=== PATIENT | female | born 1930 | race Caucasian/White ===

== ENCOUNTER → 2016-05-07 11:24 | Outpatient (CLI) | payer MEDICARE, BC ==
[~2016-05-07 11:24] MED LIST: ACETAMINOPHEN325 MG PO; ALEVE220 MG; ASPIRIN 81 MG E81 MG; CALCIUM 600 +1 EAC3 PO; DYRENIUM50 MG; EVISTA60 MG PO; MULTIPLE VITAMI1 TA1 PO; NORCO 10/325 TA1 TA1 PO; PRILOSEC20 MG; TOPROL XL50 MG; ZANAFLEX4 MG PO
== END | disposition home or self-care (01) ==
LOC: D.MRI 11:24
DX: M54.16 Radiculopathy, lumbar region (principal)

== ENCOUNTER 2016-07-02 12:45 | Outpatient (CLI) | payer MEDICARE, BC ==
[~2016-07-02] VITALS: Ht 154.9 cm; Wt 61.4 kg
[2016-07-02 13:53] VITALS: Ht 154.9 cm; Wt 61.4 kg
== END 2016-07-02 13:45 | disposition home or self-care (01) ==
LOC: D.OPS 12:45
DX: M81.0 Age-related osteoporosis without current pathological fracture (principal)

== ENCOUNTER 2017-01-05 10:16 | Outpatient (CLI) | payer MEDICARE, BC ==
[~2017-01-05] VITALS: Ht 154.9 cm; Wt 56.8 kg
[2017-01-05 11:49] VITALS: Ht 154.9 cm; Wt 56.8 kg
== END 2017-01-05 11:30 | disposition home or self-care (01) ==
LOC: D.OPS 10:16
DX: M81.0 Age-related osteoporosis without current pathological fracture (principal)

== ENCOUNTER → 2017-12-15 10:21 | Outpatient (CLI) | payer MEDICARE, BC ==
[~2017-12-15] VITALS: Ht 154.9 cm; Wt 50.0 kg
[2017-12-15 10:55] VITALS: Ht 154.9 cm; Wt 50.0 kg
== END | disposition home or self-care (01) ==
LOC: D.OPS 10-21 13:00
DX: M81.0 Age-related osteoporosis without current pathological fracture (principal); Z01.812 Encounter for preprocedural laboratory examination

== ENCOUNTER 2018-08-25 13:06 | Outpatient (CLI) | payer MEDICARE, BC ==
[~2018-08-25] VITALS: Ht 154.9 cm; Wt 48.2 kg
[2018-08-25 14:22] VITALS: BP 148/66; Ht 154.9 cm; Wt 48.2 kg
== END 2018-08-25 14:30 | disposition home or self-care (01) ==
LOC: D.OPS 13:06
PROVIDERS: ATTEND Family Medicine
DX: M81.0 Age-related osteoporosis without current pathological fracture (principal)

== ENCOUNTER 2019-04-11 13:04 | Outpatient (CLI) | payer MEDICARE, BC ==
[~2019-04-11] VITALS: Ht 154.9 cm; Wt 47.3 kg
[2019-04-11 13:24] VITALS: Ht 154.9 cm; Wt 47.3 kg
--- NOTE | 2019-04-11 13:37 | NUR ---
PROLIA INJECTION GIVEN IN LEFT ARM, DISCHARGE INSTRUCTIONS PROVIDED. WHEELED OUT BY VOLUNTEER STAFF
== END 2019-04-11 13:37 | disposition home or self-care (01) ==
LOC: D.OPS 13:04
PROVIDERS: ATTEND Family Medicine
DX: M81.0 Age-related osteoporosis without current pathological fracture (principal)

== ENCOUNTER 2019-09-20 13:09 | Outpatient (CLI) | payer MEDICARE, BC ==
[~2019-09-20] VITALS: Ht 154.9 cm; Wt 45.9 kg
[2019-09-20 13:27] VITALS: Ht 154.9 cm; Wt 45.9 kg
== END 2019-09-20 13:32 | disposition home or self-care (01) ==
LOC: D.OPS 13:09
PROVIDERS: ATTEND Family Medicine
DX: M81.0 Age-related osteoporosis without current pathological fracture (principal)

== ENCOUNTER 2020-05-09 11:38 | Outpatient (CLI) | payer MEDICARE, BC ==
[~2020-05-09] VITALS: Ht 154.9 cm; Wt 43.2 kg
[2020-05-09 12:43] VITALS: BP 128/72; Ht 154.9 cm; Wt 43.2 kg
== END 2020-05-09 12:45 ==
LOC: D.OPS 11:38
PROVIDERS: ATTEND Family Medicine
DX: M81.0 Age-related osteoporosis without current pathological fracture (principal)